=== PATIENT | female | born 1975 | race Caucasian/White ===

== ENCOUNTER 2016-06-05 07:53 | Emergency (ER) | payer OTHER ==
[~2016-06-05] VITALS: Ht 175.3 cm; Wt 89.8 kg
[~2016-06-05 07:53] MED LIST: BACTRIM DS TAB1 EAC1 ORAL; CLONIDINE 0.2M0.2 MG ORAL; COUMADIN10 MG ORAL; COUMADIN7.5 MG ORAL; IBUPROFEN600 MG ORAL; IBUPROFEN800 MG ORAL; KEFLEX500 MG ORAL; LAMICTAL100 MG ORAL; LAMICTAL150 MG ORAL; LOVENOX10 M3 SUBQ; NKM; NORCO 5-325 TA1 EACH ORAL; TRAZODONE HCL150 MG ORAL; TYLENOL EXTRA500 MG ORAL
[2016-06-05 08:22] VITALS: BP 118/49
--- NOTE | 2016-06-05 09:59 | Emergency Room Report ---
History of Present Illness General Chief Complaint: Skin Rash/Abscess Source: Patient Present Illness HPI Patient states that she has noticed a tender lump in her right vulva. She states that she first noticed this about a week ago. She states that she has been using warm compresses without relief. She denies fever or chills. She denies nausea or vomiting. She denies dysuria or hematuria. She has no other complaints. Allergies: Coded Allergies: No Known Allergies (Unverified , 05/05/16) Patient History Past Medical History: see triage record, other - Blood clot in R.arm Social History: Denies: alcohol use, drug use, smoking Last Menstrual Period: 05/28/2016 Reviewed Nursing Documentation: PMH: Agreed, PSxH: Agreed Nursing Documentation-PMH Past Medical History: No History, Except For Hx Cancer: No Hx Gastrointestinal Problems: No History Of Psychiatric Problem: Yes - PTSD Hx Neurological Problems: No Hx Cerebrovascular Accident: No Review of Systems All Other Systems: negative except mentioned in HPI Physical Exam Vital Signs Date Time Temp Pulse Resp B/P Pulse Ox O2 Delivery O2 Flow Rate FiO2 06/05/16 08:04 98.2 96 14 118/49 97 Room Air Sp02 EP Interpretation: reviewed, normal General Appearance: no apparent distress, alert, GCS 15, non-toxic Head: normocephalic, atraumatic Eyes: bilateral eye PERRL, bilateral eye normal inspection ENT: hearing grossly normal, normal pharynx, no angioedema, normal voice Neck: full range of motion, supple/symm/no masses Respiratory: chest non-tender, lungs clear, normal breath sounds, speaking full sentences Cardiovascular #1: regular rate, rhythm, no edema Gastrointestinal: normal bowel sounds, non tender, soft, non-distended, no guarding, no rebound Rectal: deferred Genitourinary: other - Tender firm area R. thigh/lateral vulva without fluctuance. No erythema. Musculoskeletal: back normal, gait/station normal, normal range of motion, non- tender Neurologic: alert, oriented x3, responsive, motor strength/tone normal, sensory intact, speech normal Psychiatric: judgement/insight normal, memory normal, mood/affect normal, no suicidal/homicidal ideation Skin: normal color, no rash, warm/dry, well hydrated Medical Decision Making Diagnostic Impression: Primary Impression: Lymph node enlarged vs small abscess ER Course This patient has a firm enlarged area/mass in her right vulva/inguinal region. Physical exam, it is not fluctuant and there is no skin erythema or warmth that would make me sure that this is an abscess. This may be a reactive lymph node. It is also deep under the cutaneous tissue. It is tender to palpation. I had planned on obtaining an ultrasound to further assess before doing an incision and drainage. I was also has a tent because the patient is on Coumadin and I did not want to do an unnecessary procedure and put the patient at risk for bleeding and infection. However, the patient declined waiting to get the ultrasound and wanted to leave with antibiotics. The patient is nontoxic without a definitive abscess that needs to be drained. She states that she will apply warm compresses and take antibiotics and return if there is worsening of the area. I did advise the patient to stay for the ultrasound but she declined. She states that she will return if needed. She is given close return precautions and followup instructions. I did educate the patient that this could be an organizing abscess and just is not fluctuant yet. She indicated understanding. Last Vital Signs Date Time Temp Pulse Resp B/P Pulse Ox O2 Delivery O2 Flow Rate FiO2 06/05/16 08:22 98.2 72 14 118/49 97 Room Air Disposition: HOME, SELF-CARE Condition: Stable Referrals: NON PHYSICIAN (PCP) AMANDA RAMIREZ D.O. Jun 05, 2016 09:59
[2016-06-05] MEDS ORDERED: DOXYCYCLINE MO100 MG ORAL (10:01)
[2016-06-05 10:06] VITALS: BP 115/50
[2016-06-05 10:08] VITALS: BP 115/50
== END 2016-06-05 10:09 | disposition home or self-care (01) ==
LOC: EMR 08:26
DX: R22.2 Localized swelling, mass and lump, trunk (principal); F43.10 Post-traumatic stress disorder, unspecified
CPT/HCPCS: 99283